=== PATIENT | male | born 1960 ===

== ENCOUNTER 2018-08-23 17:03 | Observation (INO) | payer BC ==
[2018-08-23 17:51] LABS: BASO # 0.1 K/uL (0.0-0.2); EOS # 0.3 K/uL (0.0-0.7); EOS % 4.6 % (0.0-4.0); HEMOGLOBIN 13.9 g/dL (12.0-18.0); LYMPH # 1.3 K/uL (1.0-4.3); LYMPH % 19.2 % (20.0-40.0); MEAN CELL VOLUME 86.3 fl (80.0-94.0); MEAN CORPUSCULAR HGB CONC 34.7 g/dL (33.0-37.0); MEAN PLATELET VOLUME 8.9 fl (7.2-11.7); MONO # 0.7 K/uL (0.0-0.8); MONO % 10.6 % (0.0-10.0); NEUT # 4.4 K/uL (1.8-7.0); NEUT % 64.6 % (50.0-75.0); NRBC % 0.2 % (0.0-0.0); RBC 4.63 Mil/uL (4.40-5.90); RED CELL DISTRIBUTION WIDTH 13.8 % (11.5-14.5); WHITE BLOOD COUNT 6.9 K/uL (4.8-10.8)
[2018-08-23 17:57] LABS: PROTHROMBIN TIME 10.9 Seconds (9.8-13.1)
[2018-08-23 17:59] LABS: PARTIAL THROMBOPLASTIN TIME 34.5 Seconds (25.6-37.1)
[2018-08-23 18:02] LABS: ALB/GLOB RATIO 1.4 (1.0-2.1); ALBUMIN 4.7 g/dL (3.5-5.0); ALT/SGPT 35 U/L (21-72); AST/SGOT 25 U/L (17-59); BLOOD UREA NITROGEN 23 mg/dl (9-20); CALCIUM 9.6 mg/dL (8.4-10.2); GFR NON-AFRICAN AMERICAN > 60
--- NOTE | 2018-08-23 18:20 | ED PDOC ---
HPI: General Adult Time Seen by Provider: 08/23/18 17:17 Chief Complaint (Nursing): Eye Problem Chief Complaint (Provider): Eye Problem History Per: Patient History/Exam Limitations: no limitations Onset/Duration Of Symptoms: Days (8 pm yesterday) Current Symptoms Are (Timing): Still Present Additional Complaint(s): 57 year old male with a history of high cholesterol and hypertension presents to the ED with sudden onset of left eye visual changes onset 8 pm yesterday. He states that the lower bottom of his visual field is obscured and has been constant since onset, with intermittent episodes of floaters. He reports he has had ocular migraines for several years, but this visual disturbance is different from ocular migraines as he is pain free at this time and symptoms have prolonged. He denies weakness, headache, trauma, fever or chills. PMD: none provided Past Medical History Reviewed: Historical Data, Nursing Documentation, Vital Signs Vital Signs: Last Vital Signs Temp 97.9 F 08/23/18 17:15 Pulse 91 H 08/23/18 17:15 Resp 16 08/23/18 17:15 BP 174/88 H 08/23/18 17:15 Pulse Ox 98 08/23/18 17:15 - Medical History PMH: HTN, Hypercholesterolemia - Family History Family History: States: Unknown Family Hx - Home Medications Home Medications: Ambulatory Orders Medication Instructions Recorded Irbesartan/Hydrochlorothiazide 1 tab PO DAILY 08/23/18 [Avalide 150-12.5 mg Tablet] Simvastatin [Zocor] 20 mg PO DAILY 08/23/18 amLODIPine [Norvasc] 5 mg PO DAILY 08/23/18 - Allergies Allergies/Adverse Reactions: Allergies Allergy/AdvReac Type Severity Reaction Status Date / Time phenobarbital Allergy ANAPHYLAXIS Verified 08/23/18 17:14 Review of Systems ROS Statement: Except As Marked, All Systems Reviewed And Found Negative Constitutional: Negative for: Fever, Chills, Weakness Eyes: Positive for: Vision Change, Other (floaters) Neurological: Negative for: Headache Physical Exam - Reviewed Nursing Documentation Reviewed: Yes Vital Signs Reviewed: Yes - Physical Exam Appears: Positive for: No Acute Distress Head Exam: Positive for: ATRAUMATIC, NORMOCEPHALIC Skin: Positive for: Normal Color, Warm, Dry Eye Exam: Positive for: Normal appearance, EOMI, PERRL, Other (no hyphema). Negative for: Nystagmus, Conjunctival injection, Scleral icterus ENT: Positive for: Normal ENT Inspection Cardiovascular/Chest: Positive for: Regular Rate, Rhythm. Negative for: Murmur Respiratory: Positive for: Normal Breath Sounds. Negative for: Respiratory Distress Gastrointestinal/Abdominal: Positive for: Normal Exam, Soft. Negative for: Tenderness Extremity: Positive for: Normal ROM (upper and lower). Negative for: Pedal Edema, Deformity Neurologic/Psych: Positive for: Alert, Oriented (x3), Gait (steady and unassisted), Other (equal planning director strength bilaterally) - Laboratory Results Result Diagrams: 08/23/18 17:46 08/23/18 17:46 Lab Results: PT 10.9 Seconds (9.8-13.1) 08/23/18 17:46 INR 1.0 08/23/18 17:46 APTT 34.5 Seconds (25.6-37.1) 08/23/18 17:46 Troponin I < 0.0120 ng/mL (0.00-0.120) 08/23/18 17:46 Total Bilirubin 0.4 mg/dl (0.2-1.3) 08/23/18 17:46 AST 25 U/L (17-59) 08/23/18 17:46 ALT 35 U/L (21-72) 08/23/18 17:46 Alkaline Phosphatase 52 U/L (38-126) 08/23/18 17:46 Total Protein 8.1 G/DL (6.3-8.2) 08/23/18 17:46 Albumin 4.7 g/dL (3.5-5.0) 08/23/18 17:46 Globulin 3.4 gm/dL (2.2-3.9) 08/23/18 17:46 Albumin/Globulin Ratio 1.4 (1.0-2.1) 08/23/18 17:46 - ECG ECG: Positive for: Interpreted By Me ECG Rhythm: Positive for: Sinus Rhythm. Negative for: ST/T Changes O2 Sat by Pulse Oximetry: 98 (RA) Pulse Ox Interpretation: Normal Medical Decision Making Medical Decision Making: Time: 1730 Plan: --CT head with contrast --EKG --CMP --Troponin --CBC --PTT --PT/INR --supervisor record press --US cacrotid and vertebral Time: 1740 --Discussed case with Dr. Ding who agrees with plan and request CTA of head and neck to be done and if CT head without contrast is negative, patient to be given aspirin Time: 1799 --Patient evaluated by Dr. Whittington. Besides sono of bilateral eye performed, results within normal limits, optic nerve and IOP normal, no retinal detachment noted. Time: 1819 --Case discussed with Dr. New, who will evaluate patient in hospital tomorrow. Time: 1899 CT head FINDINGS: BRAIN No acute intraparenchymal hemorrhage. No mass lesion. No CT evidence for acute territorial infarct. No midline shift or extra-axial collections. VENTRICLES: No hydrocephalus. ORBITS: The orbits are unremarkable. SINUSES AND MASTOIDS: There is mild mucous membrane thickening involving left maxillary sinus. BONES: No fracture. SOFT TISSUES: Unremarkable. IMPRESSION: No acute intracranial abnormality. Mild inflammatory changes left maxillary sinus. Time: 1920 US Duplex Bilateral Carotid and Vertebral Arteries: IMPRESSION: No hemodynamically significant stenosis by NASCET criteria. Time: 1939 CTA Head and Neck with Intravenous Contrast: IMPRESSION: 1. Unremarkable CTA of the head and neck. 2. Incidental discovery is made of some inferior left maxillary sinusitis. 1999 Results d/w Dr. Ding and agrees with plan. Will see patient in the hospital tomorrow. Case d/w hospitalist and arrangements made for 23 hour observation. Pt. informed of plan and agrees. All questions answered. Scribe Attestation: Documented by Lucia Alatorre, acting as a scribe for Manuel Domingo PA-C Provider Scribe Attestation: All medical record entries made by the Scribe were at my direction and personally dictated by me. I have reviewed the chart and agree that the record accurately reflects my personal performance of the history, physical exam, medical decision making, and the department course for this patient. I have also personally directed, reviewed, and agree with the discharge instructions and disposition. Disposition - Clinical Impression Clinical Impression: Visual loss, left eye - Patient ED Disposition Is Patient to be Admitted: Yes - Disposition Disposition Time: 17:41 Condition: FAIR
[2018-08-23] MEDS ORDERED: Sodium Chloride 0.9% 50 ML IV ONE (18:28)
[2018-08-23] MEDS ORDERED: Iodixanol 320 MG/ML 100 ML BOTTLE IV ONE (18:28)
--- NOTE | 2018-08-23 21:49 | CP.PCM.HP ---
<Nicole De Oliveira - Last Filed: 08/24/18 00:46> History of Present Illness - History of Present Illness History of Present Illness: 57 yo M with medical hx hypertension, hyperlipidemia, ocular migraines, frequent sinus infections presented to ED with left eye vision changes. Pt states he was on a trip in [place] this past week and last night started experiencing vision disturbance in left eye. He noticed it again while waiting to board flight home, and decided to come to ED immediately after dropping luggage off at home. He states disturbance started as floaters when he moved his eyes fast from one point to another; then he noticed that when he looks up, he feels like he loses inferior peripheral vision in left eye; feels like he can see more of what is below where he is focusing from his right eye. Denies sharp demarcation of "black out" in either eye; states it is difficult to describe other than that he feels he sees less and it feels off to him. Pt states that he has suffered from ocular migraines in the past, describes he knows what those are for him, and that they can be accompanied by pain, but that this is different and he does not have pain. Also noticed that he has started to have sinus infection 2 days ago, which are common for him. Denies any weakness, blurred/double vision, difficulty focusing his vision on something. Denies any pain; no chest pain, no abdominal pain, no headache. No difficulties breathing. PMD: In [place]; pt recently moved from [place] to [place] Has also seen director broadcast in [place] in December 2015; had stress test, echo, told all was normal Past Med hx: hypertension, hyperlipidemia Past Surg hx: osteochondroma removal on right lower ext age 11, right ureteral straightening surgery 1995, inguinal hernia repair early Family history: brother w/ multiple sclerosis; no family history of strokes Social hx: occasional (1x/mo) cigar smoker; alcohol 3x a week (1-3 drinks at a time); denies drug use. Works on [employer]. Recently relocated to [place] from [place]. Allergies: phenobarbital Medications: simvastatin 20 mg daily, norvasc 5 mg daily, avalide (irbesartan/hctz 150-12.5 mg); takes all 3 meds in evenings usually ED course; as per ED documentation Vitals on arrival: BP 174/88, HR 91, T 97.9, RR 16, O2 sat 98 on RA EKG NSR Labs (CBC, CMP, coags) Troponin neg CT head ordered Carotid/vertebral artery u/s ordered CT head: IMPRESSION: No acute intracranial abnormality. Mild inflammatory changes left maxillary sinus. US carotid/vertebral: IMPRESSION: No hemodynamically significant stenosis by NASCET criteria. Neuro consulted - Dr. Ding requested CTA of head and neck to be done and if CT head without contrast is negative, patient to be given aspirin. Pt received aspirin 325 mg. CTA Head and Neck with Intravenous Contrast: IMPRESSION: 1. Unremarkable CTA of the head and neck. 2. Incidental discovery is made of some inferior left maxillary sinusitis. Patient was evaluated by Dr. Whittington. Bedside sono of bilateral eye performed, results within normal limits, optic nerve and IOP normal, no retinal detachment noted. Case discussed with Dr. New (mirror framer), who will evaluate patient in hospital tomorrow. Pt admitted to telemetry. Present on Admission - Present on Admission Any Indicators Present on Admission: No Review of Systems - Constitutional Constitutional: absent: Fever, Headache, Weakness - EENT Eyes: Change in Vision, Floaters, Loss of Peripheral Vision. absent: Blurred Vision, Diplopia, Discharge, Exophthalmos, Pain, Photophobia - Cardiovascular Cardiovascular: absent: Chest Pain - Respiratory Respiratory: absent: Dyspnea - Gastrointestinal Gastrointestinal: absent: Abdominal Pain - Genitourinary Genitourinary: absent: Dysuria - Musculoskeletal Musculoskeletal: absent: Abnormal Gait, Limited Range of Motion, Muscle Weakness, Neck Pain, Numbness, Stiffness, Tingling - Neurological Neurological: absent: Focal Weakness, Vertigo, Weakness Past Patient History - Past Social History Smoking Status: Current Some Days Smoker Alcohol: Occasional Drugs: Denies Home Situation {Lives}: With Family - CARDIAC Hx Cardiac Disorders: Yes Hx Hypercholesterolemia: Yes Hx Hypertension: Yes - PULMONARY Hx Respiratory Disorders: No - NEUROLOGICAL Hx Neurological Disorder: No - HEENT Other/Comment: wears eyeglasses for nearsightedness - RENAL Hx Chronic Kidney Disease: No - ENDOCRINE/METABOLIC Hx Endocrine Disorders: No - HEMATOLOGICAL/ONCOLOGICAL Hx Blood Disorders: No - INTEGUMENTARY Hx Dermatological Problems: No - MUSCULOSKELETAL/RHEUMATOLOGICAL Hx Musculoskeletal Disorders: Yes Other/Comment: hx osterochondorma in childhood - GASTROINTESTINAL Hx Gastrointestinal Disorders: No - GENITOURINARY/GYNECOLOGICAL Hx Genitourinary Disorders: No - PSYCHIATRIC Hx Psychophysiologic Disorder: No Hx Substance Use: No - SURGICAL HISTORY Hx Surgeries: Yes Hx Herniorrhaphy: Yes Hx Musculoskeletal Surgery: Yes Other/Comment: Right ureter surgery; osteochondroma removal - ANESTHESIA Hx Anesthesia: Yes Hx Anesthesia Reactions: No Meds Allergies/Adverse Reactions: Allergies Allergy/AdvReac Type Severity Reaction Status Date / Time phenobarbital Allergy ANAPHYLAXIS Verified 08/23/18 17:14 Physical Exam - Constitutional Appears: Non-toxic, No Acute Distress, Younger Than Stated Age - Head Exam Head Exam: NORMAL INSPECTION - Eye Exam Eye Exam: EOMI, Normal appearance, PERRL. absent: Conjunctival injection, Nystagmus, Periorbital swelling, Scleral icterus - ENT Exam ENT Exam: Mucous Membranes Moist - Neck Exam Neck exam: Positive for: Full Rom, Normal Inspection. Negative for: Lymphadenopathy - Respiratory Exam Respiratory Exam: Clear to Auscultation Bilateral, NORMAL BREATHING PATTERN - Cardiovascular Exam Cardiovascular Exam: REGULAR RHYTHM, +S1, +S2 - GI/Abdominal Exam GI & Abdominal Exam: Normal Bowel Sounds, Soft. absent: Tenderness - Neurological Exam Neurological exam: Alert, Normal Gait, Oriented x3 Additional comments: 5/5 strength all 4 extremities no facial droop no focal deficits speech clear - Psychiatric Exam Psychiatric exam: Normal Mood - Skin Skin Exam: Dry, Warm Results - Vital Signs Recent Vital Signs: Last Vital Signs Temp 98.2 F 08/23/18 21:18 Pulse 88 08/23/18 21:18 Resp 18 08/23/18 21:18 BP 138/88 08/23/18 21:18 Pulse Ox 99 08/23/18 21:18 - Labs Result Diagrams: 08/23/18 17:46 08/23/18 17:46 Labs: Laboratory Results - last 24 hr 08/23/18 08/23/18 08/23/18 17:46 17:46 17:46 WBC 6.9 RBC 4.63 Hgb 13.9 Hct 39.9 MCV 86.3 MCH 30.0 MCHC 34.7 RDW 13.8 Plt Count 242 MPV 8.9 Neut % (Auto) 64.6 Lymph % (Auto) 19.2 L [place] % (Auto) 10.6 H Eos % (Auto) 4.6 H Baso % (Auto) 1.0 Neut # (Auto) 4.4 Lymph # (Auto) 1.3 [place] # (Auto) 0.7 Eos # (Auto) 0.3 Baso # (Auto) 0.1 PT 10.9 INR 1.0 APTT 34.5 Sodium 138 Potassium 4.1 Chloride 98 Carbon Dioxide 26 Anion Gap 18 BUN 23 H Creatinine 1.2 Est GFR ( Amer) > 60 Est GFR (Non-Af Amer) > 60 Random Glucose 106 Calcium 9.6 Total Bilirubin 0.4 AST 25 ALT 35 Alkaline Phosphatase 52 Troponin I < 0.0120 Total Protein 8.1 Albumin 4.7 Globulin 3.4 Albumin/Globulin Ratio 1.4 Assessment & Plan - Assessment and Plan (Free Text) Assessment: 57 yo M with history hypertension and hyperlipidema, admitted for visual disturbance in left eye. Plan: Visual Disturbance in Left Eye - CT head, CTA head/neck, carotid/vertebral artery u/s - all unremarkable aside from incidental finding of inferior left maxillary sinusitis - Neuro consult - Dr. Ding; recs appreciated - Ophthalmology consult - Dr. New - Continue child monitor - Neurochecks Q4 hrs Hypertension - Resume home meds norvasc and avalide; avalide NF, replaced by losartan-hctz - Monitor BP, admitted to tele, cardiac monitoring Hyperlipidemia - Resume home med; simvastatin NF; replaced by atorvastatin Diet - Heart Healthy DVT prophylaxis - SCD for now Pt discussed w/ Dr. Grimes. <Andi Grimes - Last Filed: 08/24/18 03:17> Results - Vital Signs Recent Vital Signs: Last Vital Signs Temp 97.6 F 08/24/18 00:13 Pulse 72 08/24/18 00:13 Resp 18 08/24/18 00:13 BP 109/68 08/24/18 00:13 Pulse Ox 96 08/24/18 00:13 - Labs Result Diagrams: 08/23/18 17:46 08/23/18 17:46 Labs: Laboratory Results - last 24 hr 08/23/18 08/23/18 08/23/18 17:46 17:46 17:46 WBC 6.9 RBC 4.63 Hgb 13.9 Hct 39.9 MCV 86.3 MCH 30.0 MCHC 34.7 RDW 13.8 Plt Count 242 MPV 8.9 Neut % (Auto) 64.6 Lymph % (Auto) 19.2 L [place] % (Auto) 10.6 H Eos % (Auto) 4.6 H Baso % (Auto) 1.0 Neut # (Auto) 4.4 Lymph # (Auto) 1.3 [place] # (Auto) 0.7 Eos # (Auto) 0.3 Baso # (Auto) 0.1 PT 10.9 INR 1.0 APTT 34.5 Sodium 138 Potassium 4.1 Chloride 98 Carbon Dioxide 26 Anion Gap 18 BUN 23 H Creatinine 1.2 Est GFR ( Amer) > 60 Est GFR (Non-Af Amer) > 60 Random Glucose 106 Calcium 9.6 Total Bilirubin 0.4 AST 25 ALT 35 Alkaline Phosphatase 52 Troponin I < 0.0120 Total Protein 8.1 Albumin 4.7 Globulin 3.4 Albumin/Globulin Ratio 1.4 Assessment & Plan - Assessment and Plan (Free Text) Plan: Seen and examined patient personally. Agree with resident's A/P. 57 yo with hx of HTN, HLD and migraine with visual disturbances p/w sudden onset of visual change not similar to his pervious migraine symptoms. On exam AAOx3 and neuro- exam non-focal except for possible left lower visual field defect. Work up including CT head, CTA head/neck, carotid/vertebral artery US all unremarkable except for incidental finding of inferior left maxillary sinusitis. Will observe overnight under telemetry with frequent neuro-checks awaiting neurology and ophthalmology input.
[2018-08-24 08:28] LABS: HDL CHOLESTEROL 51 MG/DL (30-70)
[2018-08-24 08:39] LABS: LDL CHOLESTEROL 92 mg/dL (0-129)
[2018-08-24] MEDS ORDERED: HCTZ/Losartan 12.5/50 Tab PO SCH (09:00)
--- NOTE | 2018-08-24 09:42 | CT ---
Date of service: 08/23/2018 PROCEDURE: CT HEAD WITHOUT CONTRAST. HISTORY: L eye visual disturbance COMPARISON: None available. TECHNIQUE: Axial computed tomography images were obtained through the head/brain without intravenous contrast. Radiation dose: Total exam DLP = 1196.92 mGy-cm. This CT exam was performed using one or more of the following dose reduction techniques: Automated exposure control, adjustment of the mA and/or kV according to patient size, and/or use of iterative reconstruction technique. FINDINGS: HEMORRHAGE: No intracranial hemorrhage. BRAIN: Michele-white matter differentiation is preserved. There is no mass, mass effect or abnormal extra-axial fluid collection. There is no territorial infarction. The midline sagittal structures are normal. VENTRICLES: The ventricles are normal in size, shape and configuration. CALVARIUM: There is no calvarial fracture or extracranial soft tissue swelling. PARANASAL SINUSES: There is mild polypoid mucosal thickening in the left maxillary sinus. The remaining included paranasal sinuses are clear. MASTOID AIR CELLS: Predominantly clear. OTHER FINDINGS: None. IMPRESSION: No acute intracranial abnormality.If there is a persistent focal neurologic deficit and an ongoing clinical concern for acute infarction, an MRI of the brain without intravenous contrast would be a more sensitive modality for evaluation of hyperacute/acute ischemic infarction. Mild chronic left maxillary sinusitis. A preliminary report was provided by [facility].
--- NOTE | 2018-08-24 10:34 | CP.PCM.PN ---
<Renard Zamudio - Last Filed: 08/24/18 13:36> Subjective - Date & Time of Evaluation Date of Evaluation: 08/24/18 Time of Evaluation: 09:10 - Subjective Subjective: 57 yo M with medical hx hypertension, hyperlipidemia, ocular migraines, frequent sinus infections admitted left eye vision changes. Patient seen and evaluated at bedside in AM. No acute events overnight. NAD. Patient continues to have visual field disturbance, bubble/curtain like structure in left inferior peripheral visual field. Denies any eye pain, redness, ocular discharge, dysphagia, odynophagia, headache, dizziness, weakness, tingling or numbness. Appetite WNL. Neurology and neurobiologist consulted. Objective - Vital Signs/Intake and Output Vital Signs (last 24 hours): Temp Pulse Resp BP Pulse Ox 97.7 F 67 18 132/78 96 08/24/18 07:47 08/24/18 09:51 08/24/18 07:47 08/24/18 09:51 08/24/18 07:47 - Medications Medications: Current Medications Amlodipine Besylate (Norvasc) 5 mg PO DAILY [facility] Last Admin: 08/24/18 09:51 Dose: 5 mg Aspirin (Ecotrin) 81 mg PO DAILY [facility] Last Admin: 08/24/18 09:56 Dose: 81 mg Atorvastatin Calcium (Lipitor) 10 mg PO HS [facility] Last Admin: 08/23/18 22:20 Dose: 10 mg HCTZ/Losartan Potassium (Hyzaar 12.5 Mg-50 Mg) 1 tab PO DAILY [facility] Last Admin: 08/24/18 09:52 Dose: 1 tab - Labs Labs: 08/23/18 17:46 08/23/18 17:46 PT 10.9 Seconds (9.8-13.1) 08/23/18 17:46 INR 1.0 08/23/18 17:46 APTT 34.5 Seconds (25.6-37.1) 08/23/18 17:46 - Constitutional Appears: Well, Non-toxic, No Acute Distress - Head Exam Head Exam: ATRAUMATIC, NORMAL INSPECTION, NORMOCEPHALIC - Eye Exam Eye Exam: EOMI, Normal appearance, PERRL. absent: Conjunctival injection, Nystagmus, Periorbital swelling, Periorbital tenderness, Scleral icterus Pupil Exam: NORMAL ACCOMODATION - ENT Exam ENT Exam: Mucous Membranes Moist - Neck Exam Neck Exam: Full ROM - Respiratory Exam Respiratory Exam: Clear to Ausculation Bilateral, NORMAL BREATHING PATTERN - Cardiovascular Exam Cardiovascular Exam: REGULAR RHYTHM, +S1, +S2 - Extremities Exam Extremities Exam: Full ROM, Normal Inspection. absent: Calf Tenderness - Back Exam Back Exam: Full ROM - Neurological Exam Neurological Exam: Alert, Awake, CN II-XII Intact, Normal Gait, Oriented x3. absent: Motor Sensory Deficit - Psychiatric Exam Psychiatric exam: Normal Affect, Normal Mood - Skin Skin Exam: Dry, Intact, Normal Color, Warm Assessment and Plan - Assessment and Plan (Free Text) Assessment: 57 yo M with history hypertension and hyperlipidemia, admitted for visual disturbance in left eye. Plan: Visual Disturbance in Left Eye - CT head, CTA head/neck, carotid/vertebral artery u/s - all unremarkable aside from incidental finding of inferior left maxillary sinusitis - Neuro consult - Dr. Ding; recs appreciated - Ophthalmology consult - Dr. New - Continue cardiac sonographer - Neurochecks Q4 hrs - Continue ASA 81 mg daily - F/U MRI brain w/o contrast Hypertension - Controlled - Resume home meds norvasc and avalide; avalide NF, replaced by losartan-hctz - Monitor BP, admitted to tele, cardiac monitoring Hyperlipidemia - Lipid panel: Total cholesterol 185, TG 183, LDL 91, HDL 51 - Resume home med; simvastatin NF; replaced by atorvastatin Diet - Heart Healthy diet DVT prophylaxis - SCD for now <MondragonKatie - Last Filed: 08/24/18 15:45> Objective - Vital Signs/Intake and Output Vital Signs (last 24 hours): Temp Pulse Resp BP Pulse Ox 98.7 F 71 18 127/75 95 08/24/18 12:21 08/24/18 12:21 08/24/18 12:21 08/24/18 12:21 08/24/18 12:21 - Medications Medications: Current Medications Amlodipine Besylate (Norvasc) 5 mg PO DAILY [facility] Last Admin: 08/24/18 09:51 Dose: 5 mg Aspirin (Ecotrin) 81 mg PO DAILY [facility] Last Admin: 08/24/18 09:56 Dose: 81 mg Atorvastatin Calcium (Lipitor) 10 mg PO HS [facility] Last Admin: 08/23/18 22:20 Dose: 10 mg HCTZ/Losartan Potassium (Hyzaar 12.5 Mg-50 Mg) 1 tab PO DAILY [facility] Last Admin: 08/24/18 09:52 Dose: 1 tab - Labs Labs: 08/23/18 17:46 08/23/18 17:46 PT 10.9 Seconds (9.8-13.1) 08/23/18 17:46 INR 1.0 08/23/18 17:46 APTT 34.5 Seconds (25.6-37.1) 08/23/18 17:46 Attending/Attestation - Attestation I have personally seen and examined this patient.: Yes I have fully participated in the care of the patient.: Yes I have reviewed all pertinent clinical information, including history, physical exam and plan: Yes Notes (Text): Visual Disturbance , Left Eye - CT of head, CTA Head and Neck : neg -cont ASA and statin - Neuro eval -Mri of brain pending - Ophtha eval
--- NOTE | 2018-08-24 13:26 | US ---
Date of service: 08/23/2018 PROCEDURE: Duplex ultrasound of the carotid and vertebral arteries. HISTORY: Left eye visual loss COMPARISON: CTA head and neck performed the same day. TECHNIQUE: Grayscale and duplex Doppler evaluation of the cervical carotid and vertebral arteries were performed. The common carotid, carotid bifurcations and cervical ICA and proximal ECA were evaluated. The vertebral arteries were evaluated for gross patency and direction. FINDINGS: RIGHT CAROTID ARTERIES: Common Carotid Artery: Normal. Maximal flow velocity of 98.4 cm/s. Carotid Bifurcation: Normal. Internal Carotid Artery:Normal. Maximal flow velocity of 80.6 cm/s. External Carotid Artery (proximal branches): Normal. Maximal flow velocity of 116.0 cm/s. ICA/CCA Ratio: 0.8 LEFT CAROTID ARTERIES: Common Carotid Artery: Normal. Maximal flow velocity of 109.7 cm/s. Carotid Bifurcation: Normal. Internal Carotid Artery:Normal. Maximal flow velocity of 84.0 cm/s. External Carotid Artery (proximal branches): Normal. Maximal flow velocity of 96.5 cm/s. ICA/CCA Ratio: 0.8 VERTEBRAL ARTERIES: Right vertebral Artery: Patent. Antegrade flow. Left Vertebral Artery: Patent. Antegrade flow. OTHER FINDINGS: No atherosclerotic calcification present IMPRESSION: 1. No evidence of hemodynamically significant stenosis in the internal carotid arteries by peak systolic velocity criteria. 2. Patent bilateral vertebral arteries with antegrade flow.
--- NOTE | 2018-08-24 13:28 | CT ---
Date of service: 08/23/2018 PROCEDURE: CT Angiography of the neck with contrast HISTORY: Left eye visual loss COMPARISON: Comparison made with concurrent noncontrast CT scan of the brain. TECHNIQUE: Contiguous axial images of the neck were obtained from the level of the vertex of the skull to the superior mediastinum in the arteriographic phase of enhancement. Coronal and sagittal reformats or also generated. IV contrast dose: Radiation dose: Total exam DLP = 434.31 mGy-cm. This CT exam was performed using one or more of the following dose reduction techniques: Automated exposure control, adjustment of the mA and/or kV according to patient size, and/or use of iterative reconstruction technique. FINDINGS: The visualized aortic arch widely patent with no significant atherosclerotic plaque.. The right brachiocephalic and left common carotid artery arise from a common trunk of. The common carotid arteries including the carotid bifurcations widely patent with no evidence of occlusion significant stenosis or dissection. There is a small partially calcified plaque seen at the level of the distal common carotid artery/left carotid bifurcation junction which does not result in significant stenosis. The distal internal carotid arteries including the petrous cavernous and supraclinoid segments also widely patent. The vertebral arteries are patent throughout left-sided which is larger in caliber/more dominant than the right. Basilar artery patent. The visualized major branches of the [id number] are patent as well. The visualized portions of the distal anterior middle and posterior cerebral arteries are patent and relatively symmetric so far as can be seen.. No evidence of large aneurysm nor vascular malformation. OTHER FINDINGS: Findings also consistent with mild exophthalmos. Recommend ophthalmologic consultation and correlation with thyroid function tests. Multilevel degenerative spondylosis of the cervical spine. IMPRESSION: No evidence of occlusion or dissection. There is a small partially calcified plaque along the distal posterolateral margin of the left common carotid artery/carotid bifurcation trunk murdock which does not result in significant stenosis. No evidence of large aneurysm nor vascular malformation.
--- NOTE | 2018-08-24 15:37 | CP.PCM.CON ---
History of Present Illness - History of Present Illness History of Present Illness: Neurology consult called by Dr. Mondragon: As per chart review: 57 yo M with medical hx hypertension, hyperlipidemia, ocular migraines, frequent sinus infections presented to ED with left eye vision changes. Pt states he was on a trip in [place] this past week and last night started experiencing vision disturbance in left eye. He noticed it again while waiting to board flight home, and decided to come to ED immediately after dropping luggage off at home. He states disturbance started as floaters when he moved his eyes fast from one poin t to another; then he noticed that when he looks up, he feels like he loses inferior peripheral vision in left eye; feels like he can see more of what is below where he is focusing from his right eye. Denies sharp demarcation of "black out" in either eye; states it is difficult to describe other than that he feels he sees less and it feels off to him. Pt states that he has suffered from ocular migraines in the past, describes he knows what those are for him, and that they can be accompanied by pain, but that this is different and he does not have pain. Ocular migraines are typically accompanied with zig zag lines. Also noticed that he has started to have sinus infection 2 days ago, which are common for him. Denies any weakness, blurred/double vision, difficulty focusing his vision on s omething. Denies any pain; no chest pain, no abdominal pain, no headache. No difficulties breathing. PMD: In [place]; pt recently moved from [place] to [place] Has also seen auditing manager in [place] in December 2015; had stress test, echo, told all was normal Past Med hx: hypertension, hyperlipidemia Past Surg hx: osteochondroma removal on right lower ext age 11, right ureteral straightening surgery 1995, inguinal hernia repair early Family history: brother w/ multiple sclerosis; no family history of strokes Social hx: occasional (1x/mo) cigar smoker; alcohol 3x a week (1-3 drinks at a time); denies drug use. Works on [address]. Recently relocated to [place] from [place]. Allergies: phenobarbital Medications: simvastatin 20 mg daily, norvasc 5 mg daily, avalide (irbes eloisa/hctz 150-12.5 mg); takes all 3 meds in evenings usually ED course; as per ED documentation Vitals on arrival: BP 174/88, HR 91, T 97.9, RR 16, O2 sat 98 on RA EKG NSR Labs (CBC, CMP, coags) Troponin neg CT head ordered Carotid/vertebral artery u/s ordered CT head: IMPRESSION: No acute intracranial abnormality. Mild inflammatory changes left maxillary sinus. US carotid/vertebral: IMPRESSION: No hemodynamically significant stenosis by NASCET criteria. ROS: no aphasia, no dysarthria, no weakness, no other complaints. ON exam: NOrmal neurological exam except for left inferior incomplete quadrantanopsia. Review of Systems - Constitutional Constitutional: absent: As Per HPI, Anorexia, Chills, Daytime Sleepiness, Excessive Sweating, Fatigue, Fever, Frequent Falls, Headache, Increased Appetite, Lethargy, Malaise, Night Sweats, Snoring, Sleep Apnea, Weight Gain, Weight Loss, Weakness, Other - EENT Eyes: Diplopia, Other Visual Disturbances. absent: As Per HPI, Blind Spots, Blurred Vision, Change in Vision, Decreased Night Vision, Discharge, Dry Eye, Exophthalmos, Floaters, Irritation, Itchy Eyes, Loss of Peripheral Vision, Pain, Photophobia, Requires Corrective Lenses, Sees Flashes, Spots in Vision, Tunnel Vision, Loss of Vision, Other - Cardiovascular Cardiovascular: absent: As Per HPI, Acrocyanosis, Chest Pain, Chest Pain at Rest, Chest Pain with Activity, Claudication, Diaphoresis, Dyspnea, Dyspnea on Exertion, Edema, Irregular Heart Rhythm, Pain Radiating to Arm/Neck/Jaw, Leg Edema, Leg Ulcers, Lightheadedness, Orthopnea, Palpitations, Paroxysmal Nocturnal Dyspnea, Pedal Edema, Radiating Pain, Rapid Heart Rate, Slow Heart Rate, Syncope, Other - Gastrointestinal Gastrointestinal: absent: As Per HPI, Abdominal Pain, Belching, Bloating, Change in Bowel Habits, Change in Stool Character, Coffee Ground Emesis, Constipation, Cramping, Diarrhea, Dyspepsia, Dysphagia, Early Satiety, Excessive Flatus, Fecal Incontinence, Heartburn, Hematemesis, Hematochezia, Loose Stools, Melena, Nausea, Odynophagia, Temesmus, Vomiting, Other - Genitourinary Genitourinary: absent: As Per HPI, Change in Urinary Stream, Difficulty Urinating, Dysuria, Flank Pain, Hematuria, Pyuria, Nocturia, Urinary Incontinence, Urinary Frequency, Urinary Hesitance, Urinary Urgency, Voiding Freq/Small Amts, Freq UTI, Hx Renal/Bladder Calculi, Hx /Renal Surgery, Bladder Distension, Other - Neurological Neurological: Other Visual Disturbances. absent: As Per HPI, Abnormal Gait, Abnormal Hearing, Abnormal Movements, Abnormal Speech, Behavioral Changes, Burning Sensations, Confusion, Convulsions, Disequilibrium, Dizziness, Numbness, Focal Weakness, Frequent Falls, Headaches, Lack of Coordination, Loss of Vision, Memory Loss, Paresthesias, Radicular Pain, Restless Legs, Sensory Deficit, Syncope, Tingling, Tremor, Vertigo, Weakness, Other Past Patient History - Past Medical History & Family History Past Medical History?: Yes - Past Social History Smoking Status: Current Some Days Smoker Alcohol: Occasional Drugs: Denies Home Situation {Lives}: With Family - CARDIAC Hx Cardiac Disorders: Yes Hx Hypercholesterolemia: Yes Hx Hypertension: Yes - PULMONARY Hx Respiratory Disorders: No - NEUROLOGICAL Hx Neurological Disorder: No - HEENT Other/Comment: wears eyeglasses for nearsightedness - RENAL Hx Chronic Kidney Disease: No - ENDOCRINE/METABOLIC Hx Endocrine Disorders: No - HEMATOLOGICAL/ONCOLOGICAL Hx Blood Disorders: No - INTEGUMENTARY Hx Dermatological Problems: No - MUSCULOSKELETAL/RHEUMATOLOGICAL Hx Musculoskeletal Disorders: Yes Other/Comment: hx osterochondorma in childhood - GASTROINTESTINAL Hx Gastrointestinal Disorders: No - GENITOURINARY/GYNECOLOGICAL Hx Genitourinary Disorders: No - PSYCHIATRIC Hx Psychophysiologic Disorder: No Hx Substance Use: No - SURGICAL HISTORY Hx Surgeries: Yes Hx Herniorrhaphy: Yes Hx Musculoskeletal Surgery: Yes Other/Comment: Right ureter surgery; osteochondroma removal - ANESTHESIA Hx Anesthesia: Yes Hx Anesthesia Reactions: No Meds Allergies/Adverse Reactions: Allergies Allergy/AdvReac Type Severity Reaction Status Date / Time phenobarbital Allergy ANAPHYLAXIS Verified 08/23/18 17:14 - Medications Medications: Current Medications Amlodipine Besylate (Norvasc) 5 mg PO DAILY [facility] Last Admin: 08/24/18 09:51 Dose: 5 mg Aspirin (Ecotrin) 81 mg PO DAILY [facility] Last Admin: 08/24/18 09:56 Dose: 81 mg Atorvastatin Calcium (Lipitor) 10 mg PO HS [facility] Last Admin: 08/23/18 22:20 Dose: 10 mg HCTZ/Losartan Potassium (Hyzaar 12.5 Mg-50 Mg) 1 tab PO DAILY [facility] Last Admin: 08/24/18 09:52 Dose: 1 tab Physical Exam - Constitutional Appears: Well, Non-toxic - Head Exam Head Exam: ATRAUMATIC, NORMAL INSPECTION, NORMOCEPHALIC - Eye Exam Eye Exam: absent: Conjunctival injection, EOMI, Normal appearance, Nystagmus, Periorbital swelling, Periorbital tenderness, PERRL, Scleral icterus Pupil Exam: absent: Fixed, Irregular, Miosis, Mydriatic, NORMAL ACCOMODATION, PERRL, Unequal - Cardiovascular Exam Cardiovascular Exam: absent: Bradycardia, Tachycardia, Clicks, Diastolic murmur, Gallop, Irregular Rhythm, REGULAR RHYTHM, JVD, RRR, Rubs, +S1, +S2, +S4, Systolic Murmur - Neurological Exam Neurological exam: Abnormal Gait, Alert, Altered, CN II-XII Intact, Motor S ensory Deficit, Normal Gait, Oriented x3, Reflexes Normal - Expanded Neurological Exam Expanded Patient oriented to: person, place, time Cranial nerves: EOM's Intact: Normal (Has left incomplete quadrantanopsia ) Cerebellar Function: Finger to Nose: Normal, Heel to Nunez: Normal, Romberg: Normal Upper motor neuron: Babinski Sign: Normal Sensory exam: Lower Extremity 2 Point Discrimination: Normal, Lower Extremity Light Touch: Normal, Lower Extremity Pin Prick: Normal, Lower Extremity Temperature: Normal, Upper Extremity 2 Point Discrimination: Normal, Upper Extremity Light Touch: Normal, Upper Extremity Pin Prick: Normal, Upper Extremity Temperature: Normal Neuro motor strength exam: Left Upper Extremity: 5, Right Upper Extremity: 5, Left Lower Extremity: 5, Right Lower Extremity: 5 DTR: Achilles Tendon Left: 1+, Achilles Tendon Right: 1+, Bicep Left: 1+, Bicep Right: 1+, Brachioradialis Left: 1+, Brachioradialis Right: 1+, Patellar Left: 1+, Patellar Right: 1+, Tricep Left: 1+, Tricep Right: 1+ - Psychiatric Exam Psychiatric exam: Normal Affect Results - Vital Signs Recent Vital Signs: Last Vital Signs Temp 98.7 F 08/24/18 12:21 Pulse 71 08/24/18 12:21 Resp 18 08/24/18 12:21 BP 127/75 08/24/18 12:21 Pulse Ox 95 02/18/19 12:21 - Labs Result Diagrams: 08/23/18 17:46 08/23/18 17:46 Labs: Laboratory Results - last 24 hr 08/23/18 08/23/18 08/23/18 17:46 17:46 17:46 WBC 6.9 RBC 4.63 Hgb 13.9 Hct 39.9 MCV 86.3 MCH 30.0 MCHC 34.7 RDW 13.8 Plt Count 242 MPV 8.9 Neut % (Auto) 64.6 Lymph % (Auto) 19.2 L Nuckolls % (Auto) 10.6 H Eos % (Auto) 4.6 H Baso % (Auto) 1.0 Neut # (Auto) 4.4 Lymph # (Auto) 1.3 Nuckolls # (Auto) 0.7 Eos # (Auto) 0.3 Baso # (Auto) 0.1 PT 10.9 INR 1.0 APTT 34.5 Sodium 138 Potassium 4.1 Chloride 98 Carbon Dioxide 26 Anion Gap 18 BUN 23 H Creatinine 1.2 Est GFR ( Amer) > 60 Est GFR (Non-Af Amer) > 60 Random Glucose 106 Calcium 9.6 Total Bilirubin 0.4 AST 25 ALT 35 Alkaline Phosphatase 52 Troponin I < 0.0120 Total Protein 8.1 Albumin 4.7 Globulin 3.4 Albumin/Globulin Ratio 1.4 Triglycerides Cholesterol LDL Cholesterol Direct HDL Cholesterol 08/24/18 07:45 WBC RBC Hgb Hct MCV MCH MCHC RDW Plt Count MPV Neut % (Auto) Lymph % (Auto) Nuckolls % (Auto) Eos % (Auto) Baso % (Auto) Neut # (Auto) Lymph # (Auto) Nuckolls # (Auto) Eos # (Auto) Baso # (Auto) PT INR APTT Sodium Potassium Chloride Carbon Dioxide Anion Gap BUN Creatinine Est GFR ( Amer) Est GFR (Non-Af Amer) Random Glucose Calcium Total Bilirubin AST ALT Alkaline Phosphatase Troponin I Total Protein Albumin Globulin Albumin/Globulin Ratio Triglycerides 183 H Cholesterol 185 LDL Cholesterol Direct 92 HDL Cholesterol 51 - Imaging and Cardiology CT scan - head Status: Image reviewed by me, Report reviewed by me (Ct head is normal with no stroke or hemorrhage. ) Assessment & Plan - Assessment and Plan (Free Text) Assessment: CTA Head and neck: shows a calcified plaque in the left ica, that is partially obstructing the lumen. MRI Brain: pending. Carotid doppler: normal A/P: 57 yr old male who has multiple risk factors such as hyperlipidemia, htn, dm, and now may be experiencing amarousis fugax, or right occipital stroke obscuring inferior quadrant of left eye. We will need MRI Brain without deep to assess. He does have a plaque in his ICA that could have caused the event. If MRI is normal, and telemetry is normal, would discharge patient home with optha lmology followup and outpatient ECHO on plavix. Plan: 1. MRI Brain 2. Start plavix. 3. ECHO 4. Opthalmology consult. THank you Dr. Noriega [facility] Neurology
[2018-08-24 15:45] VITALS: RESP 20
--- NOTE | 2018-08-24 16:13 | CARD ---
APPROVED REPORT Date of service: 08/23/2018 EKG Measurement Heart [id number] <Conclusion> Normal sinus rhythm Normal ECG
[2018-08-24] MEDS ORDERED: Sodium Chloride 0.9% 1,000 ML IV SCH (17:15)
[2018-08-24 19:03] VITALS: BP 116/63; PULSE 97; TEMP 98.7; O2SAT 97
--- NOTE | 2018-08-24 20:38 | CP.PCM.DIS ---
Provider - Provider Date of Admission: 08/23/18 20:40 Attending physician: Andi Grimes MD Consults: 08/23/18 18:18 Surgery [General Surgery Consult] Stat Comment: OPHTHALMOLOGY Consulting Provider: Wilfrido New Consulting Physician: Wilfrido New Reason for Consult: L eye visual loss 08/24/18 06:44 Neurology Consult Routine Comment: Consulting Provider: Steven Ding Consulting Physician: Steven Ding Reason for Consult: Left eye visual defect Time Spent in preparation of Discharge (in minutes): 35 Diagnosis - Discharge Diagnosis (1) Visual disturbance of one eye Status: Acute Hospital Course - Lab Results Lab Results: Most Recent Lab Values WBC 6.9 K/uL (4.8-10.8) 08/23/18 17:46 RBC 4.63 Mil/uL (4.40-5.90) 08/23/18 17:46 Hgb 13.9 g/dL (12.0-18.0) 08/23/18 17:46 Hct 39.9 % (35.0-51.0) 08/23/18 17:46 MCV 86.3 fl (80.0-94.0) 08/23/18 17:46 MCH 30.0 pg (27.0-31.0) 08/23/18 17:46 MCHC 34.7 g/dL (33.0-37.0) 08/23/18 17:46 RDW 13.8 % (11.5-14.5) 08/23/18 17:46 Plt Count 242 K/uL (130-400) 08/23/18 17:46 MPV 8.9 fl (7.2-11.7) 08/23/18 17:46 Neut % (Auto) 64.6 % (50.0-75.0) 08/23/18 17:46 Lymph % (Auto) 19.2 % (20.0-40.0) L 08/23/18 17:46 Douglas % (Auto) 10.6 % (0.0-10.0) H 08/23/18 17:46 Eos % (Auto) 4.6 % (0.0-4.0) H 08/23/18 17:46 Baso % (Auto) 1.0 % (0.0-2.0) 08/23/18 17:46 Neut # (Auto) 4.4 K/uL (1.8-7.0) 08/23/18 17:46 Lymph # (Auto) 1.3 K/uL (1.0-4.3) 08/23/18 17:46 Douglas # (Auto) 0.7 K/uL (0.0-0.8) 08/23/18 17:46 Eos # (Auto) 0.3 K/uL (0.0-0.7) 08/23/18 17:46 Baso # (Auto) 0.1 K/uL (0.0-0.2) 08/23/18 17:46 PT 10.9 Seconds (9.8-13.1) 08/23/18 17:46 INR 1.0 08/23/18 17:46 APTT 34.5 Seconds (25.6-37.1) 08/23/18 17:46 Sodium 138 mmol/l (132-148) 08/23/18 17:46 Potassium 4.1 MMOL/L (3.6-5.0) 08/23/18 17:46 Chloride 98 mmol/L (98-107) 08/23/18 17:46 Carbon Dioxide 26 mmol/L (22-30) 08/23/18 17:46 Anion Gap 18 (10-20) 08/23/18 17:46 BUN 23 mg/dl (9-20) H 08/23/18 17:46 Creatinine 1.2 mg/dl (0.8-1.5) 08/23/18 17:46 Est GFR ( Amer) > 60 08/23/18 17:46 Est GFR (Non-Af Amer) > 60 08/23/18 17:46 Random Glucose 106 mg/dL (75-110) 08/23/18 17:46 Calcium 9.6 mg/dL (8.4-10.2) 08/23/18 17:46 Total Bilirubin 0.4 mg/dl (0.2-1.3) 08/23/18 17:46 AST 25 U/L (17-59) 08/23/18 17:46 ALT 35 U/L (21-72) 08/23/18 17:46 Alkaline Phosphatase 52 U/L (38-126) 08/23/18 17:46 Troponin I < 0.0120 ng/mL (0.00-0.120) 08/23/18 17:46 Total Protein 8.1 G/DL (6.3-8.2) 08/23/18 17:46 Albumin 4.7 g/dL (3.5-5.0) 08/23/18 17:46 Globulin 3.4 gm/dL (2.2-3.9) 08/23/18 17:46 Albumin/Globulin Ratio 1.4 (1.0-2.1) 08/23/18 17:46 Triglycerides 183 mg/DL (0-149) H 08/24/18 07:45 Cholesterol 185 mg/dL (0-199) 08/24/18 07:45 LDL Cholesterol Direct 92 mg/dL (0-129) 08/24/18 07:45 HDL Cholesterol 51 MG/DL (30-70) 08/24/18 07:45 - Hospital Course Hospital Course: 57 yo M with history hypertension, hyperlipidema, ocular migraines, and frequent sinus infections admitted for visual disturbance in left eye that began 1 day ago. Neurology and Opthomology was consulted. He had CT Head and Neck completed which showed a no significant calcified plaque in the left ICU. MRI Brain was conducted and normal as per neurologist. Acute ophthalmological emergent conditi ons such as Retinal detachment, acute stroke, mass effect on brain was ruled out during his admission. Neurologist, Dr. Noriega, cleared pt for discharge home on plavix with f/u outpatient with Optho. Also recommended echo outpatient. Opthomologist, Dr. Zelaya referred to nursing staff, Maksim HOLLY, that patient can f/u outpatient with him. On day of discharge, pt was evaluated at the bedside and reported he still had the left eye visual disturbance. Pt was informed of all findings and specialist recommendations and advised to follow up with Ophthalmology and Neurology outpatient for further management as emergent conditions have been ruled out. Discharge Exam - Head Exam Head Exam: ATRAUMATIC, NORMAL INSPECTION, NORMOCEPHALIC - Eye Exam Eye Exam: Normal appearance Pupil Exam: PERRL. absent: Irregular, Miosis, Mydriatic, Unequal Additional comments: Vision: Has left incomplete quadrantanopsia - ENT Exam ENT Exam: Mucous Membranes Moist - Respiratory Exam Respiratory Exam: Clear to PA & Lateral. absent: Rales, Wheezes - Cardiovascular Exam Cardiovascular Exam: REGULAR RHYTHM, +S1, +S2 - Neurological Exam Neurological exam: Alert, CN II-XII Intact, Motor Sensory Deficit, Oriented x3, Reflexes Normal - Psychiatric Exam Psychiatric exam: Normal Affect - Skin Skin Exam: Normal Color Discharge Plan - Discharge Medications Prescriptions: Clopidogrel [Plavix] 75 mg PO DAILY 30 Days #30 tab - Follow Up Plan Condition: FAIR Disposition: HOME/ ROUTINE Additional Instructions: F/u with PMD, agricultural crop farm manager, and neurolgist outpatient. Return if symptoms worsen. Continue taking Plavix for stroke prevention as recommended by Neurologist here. Need echo outpatient as well. Referrals: [facility] [place] [Outside] Wilfrido New MD [Staff Provider] - Gretchen Noriega MD [Medical Doctor] -
--- NOTE | 2018-08-25 11:13 | MRI ---
Date of service: 08/24/2018 PROCEDURE: MRI BRAIN WITHOUT CONTRAST HISTORY: Left visual field loss COMPARISON: Comparison made with CT scan and CTA brain both dated 08/23/2018 TECHNIQUE: Multiplanar, multisequence MR images of the brain were obtained without intravenous contrast enhancement. FINDINGS: HEMORRHAGE: No acute parenchymal, subarachnoid or extra-axial hemorrhage. No evidence of hemosiderin deposition is identified on gradient echo weighted sequence. DWI: No evidence of an acute or early subacute infarction seen on diffusion imaging.. BRAIN PARENCHYMA: Mild diffuse/confluent chronic periventricular white matter ischemic changes are seen most pronounced in the periatrial regions. Additionally, there are a few scattered tiny deep and subcortical white matter infarcts as well. None of these changes exhibit restricted diffusion. No atrophy or chronic microvascular ischemic changes. Ventricular and sulcal size are within range of normal for this patient's stated age. VENTRICLES: No obstructive hydrocephalus. CRANIUM: Calvarium unremarkable ORBITS: Orbits and contents unremarkable. PARANASAL SINUSES/MASTOIDS: Mild mucosal thickening left maxillary antrum. There is a tiny focus of polypoid like mucosal thickening anterior aspect right maxillary antrum. VASCULAR SYSTEM: Visualized major vascular flow voids at skull base patent. OTHER FINDINGS: None. IMPRESSION: No acute intracranial hemorrhage or infarction. Mild chronic white matter ischemic changes as described.
== END 2018-08-24 20:40 | disposition home or self-care (01) ==
LOC: H.ER 17:03 → H.ERHOLD 20:40 → H.TEL 21:30
PROVIDERS: ADMIT Internal Medicine; ATTEND Internal Medicine
DX: H54.62 Unqualified visual loss, left eye, normal vision right eye (principal); I10 Essential (primary) hypertension; E78.5 Hyperlipidemia, unspecified; E78.00 Pure hypercholesterolemia, unspecified; F17.290 Nicotine dependence, other tobacco product, uncomplicated; E11.9 Type 2 diabetes mellitus without complications; J32.0 Chronic maxillary sinusitis
CPT/HCPCS: 36415; 70450; 70496; 70498; 70551; 80053; 80061; 84484; 85025; 85610; 85730; 93005; 93880; 99285; G0378; J7030; Q9967